=== PATIENT | male | born 1990 | race Caucasian/White ===

== ENCOUNTER 2017-12-14 14:16 | Emergency (ER) | payer OTHER ==
[2017-12-14] MEDS: ALBUTEROL SULFATE 2.5 MG/0.5 ML INH NEB SOLN NEB (14:31)
[2017-12-14] MEDS: IPRATROPIUM 0.5MG/ALBUTEROL 2.5MG INH SOL UD 3ML (DUONEB)(J7620) NEB (14:31)
[2017-12-14] MEDS: AZITHROMYCIN 250 MG TAB PO (14:50)
[2017-12-14] MEDS: predniSONE 20 MG TAB PO (14:50)
== END 2017-12-14 15:55 | disposition home or self-care (01) ==
LOC: M ED 14:16
DX: J06.9 Acute upper respiratory infection, unspecified (principal); B34.9 Viral infection, unspecified; Z88.0 Allergy status to penicillin
CPT/HCPCS: 71046

== ENCOUNTER → 2018-06-21 | Outpatient (REF) | payer OTHER ==
[~2018-06-21] MED LIST: CELE20TA OR; IBUP-1022 PO; No Historical Meds; PROAAER10 INH; PSEU1TAB3 PO; TESS100C PO
== END ==
LOC: M LAB REF 16:22
PROVIDERS: ATTEND Physician Assistant
DX: J09.X2 Influenza due to identified novel influenza A virus with other respiratory manifestations (principal)

== ENCOUNTER 2018-11-21 10:18 | Emergency (ER) | payer OTHER, SELFPAY ==
[~2018-11-21] VITALS: Ht 180.3 cm; Wt 103.6 kg
[2018-11-21 10:59] LABS: BASO # 0.1 10^3/uL (0.0-0.2); BASO % 0.9 % (0.0-1.0); EOS # 0.2 10^3/uL (0.0-0.5); EOS % 1.7 % (0.0-3.0); HEMATOCRIT 44.6 % (42.0-52.0); HEMOGLOBIN 15.9 g/dl (13.5-17.5); LYMPH # 1.7 10^3/uL (1.5-5.0); LYMPH % 18.6 % (24.0-44.0); MEAN CORPUSCULAR HGB CONC 35.7 g/dl (32.0-36.5); MEAN CORPUSCULAR VOLUME 84.2 fl (80.0-96.0); MONO # 0.6 10^3/uL (0.0-0.8); MONO % 6.5 % (0.0-5.0); NEUTROPHILS # 6.5 10^3/uL (1.5-8.5); NEUTROPHILS % 71.9 % (36.0-66.0); PLATELET COUNT, AUTOMATED 180 10^3/uL (150-450)
[2018-11-21] MEDS ORDERED: KETOROLAC 60 MG/2 ML VIAL (J1885) IM ONE (11:15)
--- NOTE | 2018-11-21 12:10 | REP ---
RIGHT FOOT, FOUR VIEWS: There is no evidence of an acute fracture, dislocation or intrinsic bone disease. The join spaces are unremarkable. IMPRESSION: No fracture or dislocation. Electronically Signed by Franco Crawford MD 11/22/2018 09:23 A
[2018-11-21] MEDS ORDERED: INDO50CA91 PO (12:30)
[2018-11-21 12:54] VITALS: BP 122/81
== END 2018-11-21 12:57 | disposition home or self-care (01) ==
LOC: M ED 10:18
DX: M10.071 Idiopathic gout, right ankle and foot (principal); G43.909 Migraine, unspecified, not intractable, without status migrainosus; F17.200 Nicotine dependence, unspecified, uncomplicated; Z88.0 Allergy status to penicillin
CPT/HCPCS: 36415; 73630; 80047; 84550; 85025; 96372; 99284; J1885